=== PATIENT | female | born 1980 | race African-American/Black ===

== ENCOUNTER 2017-06-17 23:27 | Emergency (ER) | payer SELFPAY ==
[2017-06-17 23:29] VITALS: BP 182/107; PULSE 110; RESP 16; TEMP 98.6; O2SAT 100
--- NOTE | 2017-06-18 00:36 | PD ---
HPI Chief Complaint: Injury Time Seen by Provider: 00:33 Travel History International Travel<30 days: No Contact w/Intl Traveler<30days: No Traveled to known affect area: No History of Present Illness HPI 37-year-old female complains of left hand pain. Patient states that the pain started this morning. Patient states the pain localized around the dorsal aspect left hand over the first second metacarpals and radial aspect of the left wrist. Patient denies any pain radiation. Patient states that the pain is worse with movement of the fingers and the thumb and the left wrist. Patient denies any fever chills. Patient denies any injury to the area. PFSH Past Medical History Immunizations Current: Yes Tetanus Vaccination: < 5 Years Influenza Vaccination: Yes ?: Not LMP: 06/17/17 Social History Alcohol Use: No Tobacco Use: Yes Substance Use: No Allergies-Medications (Allergen,Severity, Reaction): Coded Allergies: No Known Allergies (Verified Allergy, Unknown, 06/17/17) Reported Meds & Prescriptions Reported Meds & Active Scripts Active No Active Prescriptions or Reported Medications Review of Systems General / Constitutional: No: Fever Eyes: No: Visual changes HENT: No: Headaches Cardiovascular: No: Chest Pain or Discomfort Respiratory: No: Shortness of Breath Gastrointestinal: No: Abdominal Pain Genitourinary: No: Dysuria Musculoskeletal: Positive: Pain Skin: No Rash Neurologic: No: Weakness Psychiatric: No: Depression Endocrine: No: Polydipsia Hematologic/Lymphatic: No: Easy Bruising Physical Exam Narrative GENERAL: Well-nourished, well-developed patient. SKIN: Focused skin assessment warm/dry. HEAD: Normocephalic. EYES: No scleral icterus. No injection or drainage. NECK: Supple, trachea midline. No JVD or lymphadenopathy. CARDIOVASCULAR: Regular rate and rhythm without murmurs, gallops, or rubs. RESPIRATORY: Breath sounds equal bilaterally. No accessory muscle use. GASTROINTESTINAL: Abdomen soft, non-tender, nondistended. MUSCULOSKELETAL: Patient has tenderness over the first second metacarpal and dorsal aspect of the left wrist around the distal radius. No redness no heat noted. BACK: Nontender without obvious deformity. No CVA tenderness. Data Data Last Documented VS Vital Signs Date Time Temp Pulse Resp B/P (MAP) Pulse Ox O2 Delivery O2 Flow Rate FiO2 06/17/17 23:29 98.6 110 16 182/107 (132) 100 Orders Orders Hand, Complete ([id number]) (06/18/17 00:33) MDM Medical Decision Making Medical Screen Exam Complete: Yes Emergency Medical Condition: Yes Differential Diagnosis Differential diagnosis including tendinitis, sprain, fracture, dislocation. Unlikely cellulitis. Narrative Course 37-year-old female with left hand pain. Nontraumatic. Most likely tendinitis. Diagnosis Primary Impression: Left hand tendonitis Patient Instructions: General Instructions Additional Instructions: Take medications as needed for pain. Ice pack as needed. Follow-up with orthopedist or hand surgeon. Med/Other Pt SpecificInfo: Prescription(s) given Scripts Tramadol (Ultram) 50 Mg Tab 50 MG PO Q6H Y for PAIN, #20 TAB 0 Refills Prov: Massimo Gray MD 06/18/17 Prednisone (Prednisone) 20 Mg Tab 20 MG PO DAILY, #7 TAB 0 Refills Prov: Massimo rGay MD 06/18/17 Meloxicam (Mobic) 15 Mg Tab 15 MG PO DAILY for Pain, #20 TAB 0 Refills Prov: Massimo Gray MD 06/18/17 Disposition: 01 DISCHARGE HOME Condition: Stable Massimo Gray MD Jun 18, 2017 00:36
[2017-06-18] MEDS ORDERED: ULTR50TA5 PO (00:52)
[2017-06-18] MEDS ORDERED: MOBI15TA PO (00:52)
[2017-06-18] MEDS ORDERED: PRED20 PO (00:52)
[2017-06-18] MEDS ORDERED: IBUPROFEN 600 MG TAB ONE (01:14)
--- NOTE | 2017-06-18 02:58 | RADRPT ---
EXAM DATE/TIME: 06/18/2017 00:56 [facility] COMPARISON: No previous studies available for comparison. INDICATIONS : Left hand pain from unknown injury. MEDICAL HISTORY : None. SURGICAL HISTORY : None. ENCOUNTER: Initial ACUITY: 1 day PAIN SCORE: 5/10 LOCATION: Left hand. FINDINGS: Three view examination of the left hand demonstrates no soft tissue swelling, dislocation, or fractur e. The carpal bones appear intact. The interphalangeal and metacarpophalangeal joints are intact. Bony mineralization is normal. CONCLUSION: Unremarkable examination of the left hand. Bello Briones Jr., MD on June 18, 2017 at 1:43 Board Certified Radiologist. This report was verified electronically.
== END 2017-06-18 03:28 | disposition home or self-care (01) ==
LOC: NEPD 23:27
DX: M77.9 Enthesopathy, unspecified (principal)
CPT/HCPCS: 73130; 99284; L3908